=== PATIENT | female | born 2000 | race Caucasian/White ===

== ENCOUNTER 2022-04-17 19:01 | Emergency (ER) | payer OTHER, SELFPAY ==
--- NOTE | 2022-04-17 19:12 | ED.URI ---
HPI - URI/Sore Throat General Chief Complaint: Upper Respiratory Infection Stated Complaint: back of knees rash, sore throat, cough Time Seen by Provider: 04/17/22 19:23 Source: patient and RN notes reviewed Mode of arrival: ambulatory Limitations: no limitations History of Present Illness HPI Narrative: 21-year-old female presents with multiple concerns. She reports 1 week ago she began having a rash behind her knees and between 1st and 2nd digits on both hands. She reported itchy. She denies any history of eczema or similar reaction. She denies wall lymph, swollen tongue, trouble reading. A separate complaints she reports yesterday she began having sore throat, cough, rhinorrhea. She denies known sick contacts MD elicited complaint: cough and sore throat Related Data Home Medications Medication Instructions Recorded Confirmed fluoxetine 20 mg tablet mg 04/17/22 Allergies Allergy/AdvReac Type Severity Reaction Status Date / Time No Known Allergies Allergy Verified 04/17/22 19:08 Review of Systems Review of Systems: CONSTITUTIONAL: Reports malaise, chills. Denies sweats, or fever. EYES: Denies visual changes, redness, or discharge. ENT: Reports rhinorrhea, congestion, sore throat. Denies sinus pain, otalgia CARDIOVASCULAR: Denies chest pain, palpitations, or edema. RESPIRATORY: Reports cough. Denies dyspnea. GASTROINTESTINAL: Denies abdominal pain, nausea, vomiting, diarrhea SKIN: Reports itchy rash behind both knees and both hands MUSCULOSKELETAL: Denies myalgia. NEUROLOGIC: Denies headache. All systems reviewed & are unremarkable except as noted in HPI and below PMFSH Comments At time of signature, agree with nursing past medical, surgical, social and family history. There is no relevant family history pertinent to the presenting complaint Exam Narrative: GENERAL: Well-appearing, well-nourished, and in no acute distress. HEAD: Normocephalic EYES: PERRLA, conjunctivae clear ENT: Nares clear, turbinates edematous and erythematous, clear discharge. Mucous membranes moist. TM pearly maynard with dull light reflex bilaterally; no tragal tenderness. Oropharynx not erythematous without lesions. Tonsils not enlarged and without exudate, no drooling, no hoarseness, no trismus, uvula midline. NECK: Supple. No lymphadenopathy CHEST: Clear to auscultation, breath sounds equal. No wheezing, rhonchi, rales, or stridor. No respiratory distress, speaks in full sentences. HEART: Regular rate and rhythm. No murmur heard. SKIN: Warm, dry, no rash. Patches of plaque noted behind both knees in between digits 1 and 2 on bilateral hands NEURO: Alert and oriented x3. PSYCH: Normal mood and affect Course Course Emergency Course: Patient is aware of diagnosis, understands and agrees to treatment plan. Anticipatory guidance given. Patient agrees to follow-up as directed and is aware of reasons to seek care at the emergency department. Portions of this record may have been created with voice recognition software Level of Care: Express Care Visit Vital Signs Vital signs: Reviewed. MDM - URI/Sore Throat MDM Narrative Medical decision making narrative: Differential diagnosis considered: Bassett virus, strep pharyngitis, allergic rhinitis, upper respiratory tract infection, sinusitis, rhinosinusitis, nasopharyngitis. viral pharyngitis, otitis media, otitis externa, pneumonia, bronchitis, viral cough syndrome, viral syndrome, and influenza. Exam findings show no acute concerns or changes; patient is non-toxic appearing and is in no distress. Patient is appropriate for outpatient treatment and follow-up. Lab Data Attestation: I reviewed the patient's lab results. Critical Care Time Critical Care Time Critical Care Time: No Discharge Plan Discharge Clinical Impression: Acute eruption of skin Patient Disposition: Home, Self-Care Condition: Stable Additional Instructions: Rash: Wash the rash areas with gentle soap an
[2022-04-17 19:19] VITALS: BP 107/74; PULSE 94; RESP 16; TEMP 37.1; O2SAT 100
== END 2022-04-17 19:50 | disposition home or self-care (01) ==
PROVIDERS: Emergency Provider Nurse Practitioner
DX: R21 Rash and other nonspecific skin eruption (principal); Z20.822 Contact with and (suspected) exposure to COVID-19
CPT/HCPCS: 87081; 87426; 87880; 99213; C9803; G0463